=== PATIENT | female | born 2005 ===

== ENCOUNTER 2025-02-15 00:27 | Day surgery (SDC) | payer OTHER ==
[2025-02-15 00:33] VITALS: BMI 24.4
== END 2025-02-15 02:07 | disposition home or self-care (01) ==
LOC: CSHLD/OP 00:27
PROVIDERS: ATTEND Obstetrics & Gynecology
DX: O23.42 Unspecified infection of urinary tract in pregnancy, second trimester (principal); Z3A.26 26 weeks gestation of pregnancy; Z79.899 Other long term (current) drug therapy
CPT/HCPCS: 76817; 99285